=== PATIENT | male | born 1980 | race Two or more races ===

== ENCOUNTER 2024-03-08 13:04 | Emergency (ER) | payer MEDICAID ==
[~2024-03-08] VITALS: Ht 167.6 cm; Wt 73.0 kg
[2024-03-08 13:11] VITALS: TEMP 98.6
[2024-03-08] MEDS ORDERED: ONDANSETRON HCL/PF 4 MG/2 ML VIAL ONE (13:25)
[2024-03-08] MEDS ORDERED: MORPHINE SULFATE INJ 4 MG/ML DISP.SYRIN ONE (13:25)
[2024-03-08] MEDS: MORPHINE SULFATE INJ 2 MG/ML DISP.SYRIN IV ONE (13:29)
[2024-03-08] MEDS: ONDANSETRON HCL/PF 4 MG/2 ML VIAL IVP ONE (13:29)
[2024-03-08 13:48] LABS: BASOPHILS # (AUTO) 0.1 K/uL (0.0-0.2); BASOPHILS % (AUTO) 1.3 % (0.0-2.0); EOSINOPHILS # (AUTO) 0.1 K/uL (0.0-0.7); HEMATOCRIT 42 % (39-51); HEMOGLOBIN 14.6 g/dL (13.5-17.5); LYMPHOCYTES # (AUTO) 1.8 K/uL (0.8-4.8); MEAN CORPUSCULAR HEMOGLOBIN 29 PG (26.0-33.0); MEAN CORPUSCULAR HGB CONC 35 g/dl (31.0-36.0); MEAN CORPUSCULAR VOLUME 84 fL (80-96); MONOCYTES # (AUTO) 0.3 K/uL (0.1-1.30); MONOCYTES % (AUTO) 5.2 % (2.0-12.0); NEUTROPHILS % (AUTO) 57.5 % (43.0-81.0); PLATELET COUNT (AUTO) 245 K/uL (150-450); RED BLOOD CELL COUNT(AUTO) 4.96 MIL/uL (4.5-6.0); RED CELL DISTRIBUTION WIDTH 12.8 % (11.5-15.0); WHITE BLOOD COUNT (AUTO) 5.2 K/uL (4.3-11.0)
[2024-03-08 13:54] LABS: CALCIUM, SERUM 8.8 mg/dL (8.5-10.1); CARBON DIOXIDE 29 mmol/L (21-32); CHLORIDE 106 mmol/L (98-107); GLUCOSE 97 mg/dL (74-106); POTASSIUM 3.6 mmol/L (3.5-5.1); SODIUM SERUM 144 mmol/L (136-145); UREA NITROGEN, BLOOD 14 mg/dL (7-18)
[2024-03-08 14:06] LABS: NT-PRO BNP 14 pg/mL (0-125)
[2024-03-08] MEDS ORDERED: NAPR-1009 PO (15:35)
[2024-03-08] MEDS ORDERED: FAMOTIDINE/PF INJ 20 MG/2 ML VIAL IV ONE (15:54)
[2024-03-08] MEDS ORDERED: ACETAMINOPHEN ES 500 MG TABLET ONE (15:54)
[2024-03-08] MEDS: ACETAMINOPHEN ES 500 MG TABLET PO ONE (16:05)
[2024-03-08] MEDS: FAMOTIDINE/PF INJ 20 MG/2 ML VIAL IV ONE (16:05)
[2024-03-08 16:08] VITALS: BP 108/80; O2SAT 99
== END 2024-03-08 16:08 | disposition home or self-care (01) ==
LOC: ER 13:17
DX: R07.9 Chest pain, unspecified (principal); R50.9 Fever, unspecified; R06.02 Shortness of breath; R51.9 Headache, unspecified; Z86.79 Personal history of other diseases of the circulatory system; Z95.5 Presence of coronary angioplasty implant and graft
CPT/HCPCS: 99285; 96374; 96375; 71045; 93005; 85025; 80048; 36415; 84484 ×2; 83880; J2270; J3490; J2405

== ENCOUNTER 2024-12-09 15:12 | Emergency (ER) | payer MEDICAID ==
[~2024-12-09] VITALS: Ht 165.1 cm; Wt 73.9 kg
[~2024-12-09 15:12] MED LIST: NAPR-1009 PO
[2024-12-09 15:25] VITALS: TEMP 99
[2024-12-09] MEDS ORDERED: FAMOTIDINE/PF INJ 20 MG/2 ML VIAL IV ONE (16:03)
[2024-12-09] MEDS ORDERED: LIDOCAINE VISCOUS 2% UD 15 ML UDC ONE (16:03)
[2024-12-09] MEDS ORDERED: MAG HYDROX/AL HYDROX/SIMETH 30 ML UDC ONE (16:03)
[2024-12-09] MEDS: MAG HYDROX/AL HYDROX/SIMETH 30 ML UDC PO ONE (16:15)
[2024-12-09] MEDS: LIDOCAINE VISCOUS 2% UD 15 ML UDC MM ONE (16:15)
[2024-12-09] MEDS: IV NS 0.9% 1,000 ML BAG IV ONE (16:15)
[2024-12-09 16:23] LABS: PLATELET COUNT (AUTO) 250 K/uL (150-450); RED BLOOD CELL COUNT(AUTO) 5.08 MIL/uL (4.5-6.0); RED CELL DISTRIBUTION WIDTH 12.7 % (11.5-15.0); WHITE BLOOD COUNT (AUTO) 6.0 K/uL (4.3-11.0)
[2024-12-09] MEDS: FAMOTIDINE/PF INJ 20 MG/2 ML VIAL IV ONE (16:23)
[2024-12-09 16:43] LABS: CALCIUM, SERUM 8.6 mg/dL (8.5-10.1); CREATININE 1.0 mg/dL (0.6-1.3); SODIUM SERUM 137.0 mmol/L (136-145); UREA NITROGEN, BLOOD 14.0 mg/dL (7-18)
[2024-12-09 16:44] LABS: ASPARTATE AMINOTRANSFERASE 18.0 U/L (15-37); TOTAL PROTEIN, SERUM 7.0 g/dL (6.4-8.2)
[2024-12-09] MEDS ORDERED: PANT40TA2 PO (17:05)
[2024-12-09] MEDS ORDERED: MAG-55 PO (17:05)
[2024-12-09 17:31] VITALS: BP 115/75; O2SAT 96
== END 2024-12-09 17:20 | disposition home or self-care (01) ==
LOC: ER 15:12
DX: K21.9 Gastro-esophageal reflux disease without esophagitis (principal); Z79.899 Other long term (current) drug therapy; Z86.19 Personal history of other infectious and parasitic diseases
CPT/HCPCS: 99283; 96374; 96361; 85025; 80048; 83690; 80076; 36415; J1308; J7030